=== PATIENT | female | born 1970 | race Caucasian/White ===

== ENCOUNTER 2016-11-04 10:00 | Emergency (ER) | payer MEDICAID | END 2016-11-04 11:23 | disposition home or self-care (01) | LOC: D.ER 10:00 | DX: B02.9 Zoster without complications (principal) ==

== ENCOUNTER 2016-12-17 10:43 | Emergency (ER) | payer MEDICAID | END 2016-12-17 12:24 | disposition home or self-care (01) | LOC: D.ER 10:43 | DX: B02.9 Zoster without complications (principal); F17.200 Nicotine dependence, unspecified, uncomplicated ==

== ENCOUNTER 2017-01-06 07:10 | Emergency (ER) | payer MEDICAID ==
[2017-01-06 07:41] LABS: UDS - AMPHET NEGATIVE QUAL (NEGATIVE); UDS - BARB NEGATIVE QUAL (NEGATIVE); UDS - BENZO NEGATIVE QUAL (NEGATIVE); UDS - COCAINE NEGATIVE QUAL (NEGATIVE); UDS - METH NEGATIVE QUAL (NEGATIVE); UDS - OPIATE NEGATIVE QUAL (NEGATIVE); UDS - PCP NEGATIVE QUAL (NEGATIVE); UDS - THC NEGATIVE QUAL (NEGATIVE)
[2017-01-06 07:49] LABS: APPEARANCE HAZY (CLEAR); BILIRUBIN NEGATIVE (NEGATIVE); COLOR YELLOW (YELLOW); GLUCOSE NEGATIVE (NEGATIVE); KETONE NEGATIVE (NEGATIVE); LEUKOCYTE ESTERASE 1+ (NEGATIVE); NITRITE POSITIVE (NEGATIVE); PROTEIN TRACE mg/dL (NEGATIVE); UROBILINOGEN NORMAL (NORMAL)
[2017-01-06 07:51] LABS: BACTERIA MANY /hpf (NONE SEEN); MUCUS <1+ /lpf (NONE SEEN); RED CELLS - URINE 0-5 /hpf (0-5)
[2017-01-06 07:52] LABS: HCG URINE NEGATIVE (NEGATIVE)
== END 2017-01-06 08:04 | disposition home or self-care (01) ==
LOC: D.ER 07:10
PROVIDERS: Family Medicine
DX: M54.5 Low back pain (principal)

== ENCOUNTER 2017-02-18 05:58 | Emergency (ER) | payer MEDICAID | END 2017-02-18 06:50 | disposition home or self-care (01) | LOC: D.ER 05:58 | DX: H60.502 Unspecified acute noninfective otitis externa, left ear (principal) ==

== ENCOUNTER 2017-06-08 14:23 | Emergency (ER) | payer MEDICAID | END 2017-06-08 16:00 | disposition home or self-care (01) | LOC: D.ER 14:23 | DX: S39.012A Strain of muscle, fascia and tendon of lower back, initial encounter (principal); X58.XXXA Exposure to other specified factors, initial encounter; Y93.89 Activity, other specified; Y92.89 Other specified places as the place of occurrence of the external cause; M62.838 Other muscle spasm ==

== ENCOUNTER 2017-07-01 20:21 | Emergency (ER) | payer SELFPAY | END 2017-07-01 21:06 | disposition home or self-care (01) | LOC: D.ER 20:21 | DX: B02.9 Zoster without complications (principal); F17.200 Nicotine dependence, unspecified, uncomplicated ==

== ENCOUNTER 2017-07-22 09:59 | Emergency (ER) | payer SELFPAY | END 2017-07-22 11:38 | disposition home or self-care (01) | LOC: D.ER 09:59 | DX: J06.9 Acute upper respiratory infection, unspecified (principal); F17.200 Nicotine dependence, unspecified, uncomplicated ==

== ENCOUNTER 2017-09-01 15:45 | Emergency (ER) | payer SELFPAY | END 2017-09-01 17:40 | disposition home or self-care (01) | LOC: D.ER 15:45 | DX: M54.5 Low back pain (principal); S29.012A Strain of muscle and tendon of back wall of thorax, initial encounter; X58.XXXA Exposure to other specified factors, initial encounter; Y93.89 Activity, other specified; Y92.89 Other specified places as the place of occurrence of the external cause ==

== ENCOUNTER 2017-09-06 12:18 | Emergency (ER) | payer SELFPAY | END 2017-09-06 13:55 | disposition home or self-care (01) | LOC: D.ER 12:18 | DX: J06.9 Acute upper respiratory infection, unspecified (principal); J20.9 Acute bronchitis, unspecified; J11.1 Influenza due to unidentified influenza virus with other respiratory manifestations; F17.200 Nicotine dependence, unspecified, uncomplicated ==

== ENCOUNTER 2018-01-18 16:01 | Emergency (ER) | payer MEDICAID | END 2018-01-18 17:25 | disposition home or self-care (01) | LOC: D.ER 16:01 | DX: S39.012A Strain of muscle, fascia and tendon of lower back, initial encounter (principal); X50.1XXA Overexertion from prolonged static or awkward postures, initial encounter; Y93.89 Activity, other specified; Y92.019 Unspecified place in single-family (private) house as the place of occurrence of the external cause; M54.32 Sciatica, left side ==

== ENCOUNTER 2018-08-20 21:01 | Emergency (ER) | payer SELFPAY ==
[~2018-08-20] VITALS: Ht 162.6 cm; Wt 68.0 kg
[2018-08-20 21:17] VITALS: Ht 162.6 cm; Wt 68.0 kg
[2018-08-20] MEDS ORDERED: KEFLEX500 MG PO (22:27)
[2018-08-20] MEDS ORDERED: BACTRIM DS1 TAB PO (22:27)
[2018-08-20] MEDS ORDERED: ACZONE TP (22:27)
[2018-08-20] MEDS ORDERED: TORADOL10 MG PO (22:29)
[2018-08-20 23:00] VITALS: BP 112/70
== END 2018-08-20 23:17 | disposition home or self-care (01) ==
LOC: D.ER 21:01
DX: T63.331A Toxic effect of venom of brown recluse spider, accidental (unintentional), initial encounter (principal); Y92.015 Private garage of single-family (private) house as the place of occurrence of the external cause; F17.200 Nicotine dependence, unspecified, uncomplicated